=== PATIENT | male | born 1980 | race Caucasian/White ===

== ENCOUNTER 2018-10-03 03:36 | Emergency (ER) | payer MEDICARE, MEDICAID ==
[~2018-10-03] VITALS: Ht 167.6 cm; Wt 72.8 kg
[2018-10-03 03:37] VITALS: BP 128/74
[2018-10-03] MEDS ORDERED: OXYcodone/APAP 10/325MG TABLET ONE (03:56)
[2018-10-03] MEDS ORDERED: ONDANSETRON ODT 4 MG ONE (03:56)
[2018-10-03] MEDS ORDERED: ONDANSETRON ODT 4 MG PO ONE (04:00)
[2018-10-03] MEDS ORDERED: OXYcodone/APAP 10/325MG TABLET PO ONE (04:00)
== END 2018-10-03 04:39 | disposition home or self-care (01) ==
LOC: ED 04:32
DX: K02.9 Dental caries, unspecified (principal)
CPT/HCPCS: 99283; Q0162